=== PATIENT | female | born 1990 | race Caucasian/White ===

== ENCOUNTER 2022-09-11 16:36 | Emergency (ER) | payer SELFPAY ==
[2022-09-11 16:48] VITALS: BP 138/90; PULSE 115; RESP 16; TEMP 36.7; O2SAT 98
--- NOTE | 2022-09-11 17:03 | ED.MALEGU ---
HPI - Male Genitourinary General Chief complaint: Unspecified Stated complaint: Urinary Problem Time Seen by Provider: 09/11/22 17:00 Source: patient, RN notes reviewed and old records reviewed Mode of arrival: ambulatory Limitations: no limitations History of Present Illness HPI Narrative: 32 year old male who presents to [facility] with complaints of feeling a pressure sensation at times with urination and voiding a little at a time for the past week duration, patient denies any pain or burning with urination or any concern for STD exposure. 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 MD Complaint: other (pressure sensation with urination, voiding a little at a time) Onset (ago): week(s) (1) Related Data Allergies Allergy/AdvReac Type Severity Reaction Status Date / Time No Known Allergies Allergy Verified 09/11/22 16:55 Review of Systems Review of Systems: CONSTITUTIONAL: Denies fever, chills, or sweats. CARDIOVASCULAR: Denies chest pain, palpitations, or edema. RESPIRATORY: Denies cough or dyspnea. GASTROINTESTINAL: Denies abdominal pain, nausea, vomiting, or diarrhea. GENITOURINARY: Reports dysuria, voiding small amount and difficulty starting stream. Denies flank pain or hematuria. SKIN: Denies rash or itching. MUSCULOSKELETAL: Denies back pain or myalgia. Denies CVA tenderness NEUROLOGIC: Denies headache All systems reviewed & are unremarkable except as noted in HPI and below PMFSH Comments At time of signature, agree with nursing past medical, surgical, social and family history. There is no relevant family history pertinent to the presenting complaint Exam Narrative: GENERAL: Well-appearing, well-nourished, and in no acute distress. HEAD: Normocephalic, atraumatic. NECK: Supple.no lymphadenopathy CHEST: Clear to auscultation. No respiratory distress. HEART: Regular rate and rhythm. No murmur heard. Normal peripheral pulses. ABDOMEN: Soft, nontender, nondistended, normal active bowel sounds. No CVA tenderness, reports difficulty starting stream of urine, some discomfort with urination. EXTREMITIES: Normal range of motion. No edema. SKIN: Warm, dry, no rash. NEURO: No focal deficits. Alert and oriented x3. Course Course Emergency Course: Patient is aware of diagnosis, understands and agrees to treatment plan.? Anticipatory guidance given.? Patient agrees to follow-up as directed and is aware of reasons to seek care at the emergency department. Portions of this record may have been created with voice recognition software Level of Care: Express Care Visit Vital Signs Vital signs: Vital Signs Temperature 36.7 C 09/11/22 16:48 Pulse Rate 115 H 09/11/22 16:48 Respiratory Rate 16 09/11/22 16:48 Blood Pressure 138/90 09/11/22 16:48 Pulse Oximetry 98 09/11/22 16:48 Oxygen Delivery Room Air 09/11/22 16:48 Temperature 36.7 C 09/11/22 16:48 Pulse Rate 115 H 09/11/22 16:48 Respiratory Rate 16 09/11/22 16:48 Blood Pressure 138/90 09/11/22 16:48 Pulse Oximetry 98 09/11/22 16:48 Oxygen Delivery Room Air 09/11/22 16:48 MDM - Male Genitourinary Differential Diagnosis Differential diagnosis: Likely urinary tract infection, urethritis, prostatitis and other (BPH, ureteral stone) Medical Records Attestation: I reviewed the patient's medical records. Lab Data Attestation: I reviewed the patient's lab results. Lab results narrative: Glucose negative bilirubin 1+ ketone trace specific gravity greater than her equal to 1.030, blood negative pH 6.0 protein negative, urobilinogen 0.2 nitrate negative, leukocyte negative Critical Care Time Critical Care Time Critical Care Time: No Discharge Plan Discharge Clinical Impression: Dysuria Patient Disposition: Home, Self-Care Condition: Stable Instructions: Dysuria (ED) Additional Instructions: Increase fluids especially cranberry juice and water Avoid caff
== END 2022-09-11 17:27 | disposition home or self-care (01) ==
PROVIDERS: Emergency Provider Registered Nurse
DX: R30.0 Dysuria (principal)
CPT/HCPCS: 81003; 87086; 99213; G0463

== ENCOUNTER 2023-07-11 08:24 | Emergency (ER) | payer BC, SELFPAY ==
[2023-07-11 08:28] VITALS: BP 126/85; PULSE 101; RESP 20; TEMP 37.3; O2SAT 99
[2023-07-11 09:18] LABS: Influenza A QL RT-PCR Negative (Negative); Influenza B QL RT-PCR Negative (Negative); SARS-CoV-2 RNA PCR Positive (Negative)
--- NOTE | 2023-07-11 09:27 | ED.GENADULT ---
HPI - General Adult General Chief complaint: Unspecified Stated complaint: wants tested for covid Time Seen by Provider: 07/11/23 08:36 History of Present Illness HPI narrative: Patient is a 33-year-old male presenting with concerns for COVID. States that his partner tested positive several days ago. He woke up today with diffuse body aches especially in his legs and his back. No chest pain or shortness of breath. States that he wants to get tested. No further complaints or concerns. Related Data Home Medications Medication Instructions Recorded Confirmed No Home Medications 07/11/23 07/11/23 Allergies Allergy/AdvReac Type Severity Reaction Status Date / Time No Known Allergies Allergy Verified 07/11/23 08:34 Review of Systems Review of Systems: All systems reviewed & are unremarkable except as noted in HPI and below Exam Narrative: GENERAL: Well-appearing, in no acute distress HEAD: Normocephalic, atraumatic. EYES: PERRLA and EOMI. ENT: Grossly unremarkable NECK: Supple. CHEST: No respiratory distress. HEART: Regular rate and rhythm ABDOMEN: Nondistended EXTREMITIES: Normal range of motion. No edema. SKIN: Warm, dry, no rash. NEURO: Alert and oriented x3. PSYCH: Normal mood and affect. Course Vital Signs Vital signs: Vital Signs Temperature 99.1 F 07/11/23 08:28 Pulse Rate 101 H 07/11/23 08:28 Respiratory Rate 20 07/11/23 08:28 Blood Pressure 126/85 07/11/23 08:28 Pulse Oximetry 99 07/11/23 08:28 Oxygen Delivery Room Air 07/11/23 08:28 Temperature 99.1 F 07/11/23 08:28 Pulse Rate 101 H 07/11/23 08:28 Respiratory Rate 20 07/11/23 08:28 Blood Pressure 126/85 07/11/23 08:28 Pulse Oximetry 99 07/11/23 08:28 Oxygen Delivery Room Air 07/11/23 08:28 Medical Decision Making [facility] Narrative Medical decision making narrative: 33-year-old male presenting with diffuse body aches. Vitals are stable. He is positive for COVID-19. Discussed appropriate supportive care with Tylenol and ibuprofen and adequate hydration. Discussed appropriate quarantining. Advised PCP follow-up. Discharged in stable condition. Differential Diagnosis Differential Diagnosis: COVID, influenza, viral URI Vital Signs Vital Signs: Vital Signs Temperature 99.1 F 07/11/23 08:28 Pulse Rate 101 H 07/11/23 08:28 Respiratory Rate 20 07/11/23 08:28 Blood Pressure 126/85 07/11/23 08:28 Pulse Oximetry 99 07/11/23 08:28 Oxygen Delivery Room Air 07/11/23 08:28 Temperature 99.1 F 07/11/23 08:28 Pulse Rate 101 H 07/11/23 08:28 Respiratory Rate 20 07/11/23 08:28 Blood Pressure 126/85 07/11/23 08:28 Pulse Oximetry 99 07/11/23 08:28 Oxygen Delivery Room Air 07/11/23 08:28 Lab Data Lab results reviewed: Yes I reviewed the patient's lab results. Labs: Lab Results 07/11/23 Range/Units 08:31 Influenza A (RT-PCR) Negative (Negative) Influenza B (RT-PCR) Negative (Negative) SARS-CoV-2 RNA (RT-PCR) Positive A (Negative) Critical Care Time Critical Care Time Critical Care Time: No Discharge Plan Discharge Clinical Impression: COVID-19 Patient Disposition: Home, Self-Care Condition: Stable Instructions: Antibiotic Form, COVID-19 (Coronavirus Disease 2019) (ED) Additional Instructions: You are positive for COVID-19. Please quarantine for 5 days. Use Tylenol, ibuprofen for pain and fevers. Please make sure to stay hydrated. We recommend following up with PCP within 1 week. If your symptoms worsen, you develop chest pain, shortness of breath, numbness or weakness, vomiting, fevers >100.4F, or other concerning symptoms arise, please return to the ER. Prescriptions: No Action No Home Medications Follow-up/Referrals: PHYSICIAN,CORPORATE LIBRARIAN [Primary Care Provider] - Edy Evangelista MD [Physician] - Stand Alone Forms: Work/School Release IP
== END 2023-07-11 09:36 | disposition home or self-care (01) ==
PROVIDERS: Emergency Provider Emergency Medicine
DX: U07.1 COVID-19 (principal)
CPT/HCPCS: 87636; 99283

== ENCOUNTER 2023-08-15 11:02 | Emergency (ER) | payer SELFPAY ==
[2023-08-15 11:10] VITALS: BP 141/84; PULSE 92; RESP 18; TEMP 36.7; O2SAT 100
--- NOTE | 2023-08-15 11:34 | ED.NAVMDI ---
HPI - Nausea/Vomiting/Diarrhea General Chief complaint: Nausea/Vomiting/Diarrhea Stated complaint: light headed/nausea Source: patient and RN notes reviewed Mode of arrival: ambulatory Limitations: no limitations History of Present Illness HPI Narrative: Patient is a 33-year-old male who presents to the [facility] with complaints of nausea starting this morning. Patient states that he had 1 episode of emesis today. He is drink water since that time and has been able to keep it down. He denies abdominal pain or diarrhea. He reports some mild lightheadedness that occurs with the nausea. He denies chest pain or shortness of breath. Patient states that he has had several coworkers with the stomach flu. He denies recent fever. Related Data Allergies Allergy/AdvReac Type Severity Reaction Status Date / Time No Known Allergies Allergy Verified 07/11/23 08:34 Review of Systems Review of Systems: CONSTITUTIONAL: Denies fever, chills, or sweats. EYES: Denies visual changes, redness, or discharge. ENT: Denies otalgia and sore throat CARDIOVASCULAR: Denies chest pain, palpitations, or edema. RESPIRATORY: Denies cough or dyspnea. GASTROINTESTINAL: Denies abdominal pain or diarrhea. Reports nausea and vomiting. GENITOURINARY: Denies dysuria or hematuria. SKIN: Denies rash or itching. MUSCULOSKELETAL: Denies back pain, joint pain, or myalgia. NEUROLOGIC: Denies headache, numbness, or weakness. Pertinent positives per HPI. PMFSH Comments At the time of my signature, I reviewed and agree with the nursing past medical, surgical, social, and family history. There is no relevant family history pertinent to the patient complaint. Exam Narrative: GENERAL: This is a well-nourished, well-developed patient, in no apparent distress. HEAD: normocephalic, atraumatic. EYES: Sclera clear/white. Vision is grossly intact. EARS: External ears normal, auditory canals clear and without drainage, TMs normal without perforation. Hearing grossly intact. NOSE: External nose normal with no obvious nasal discharge, nares without redness, no rhinorrhea. THROAT: Mucous membranes moist, posterior pharynx clear. NECK: Neck supple, non-tender without lymphadenopathy, masses or thyromegaly. CARDIOVASCULAR: Regular rate and rhythm without murmurs, gallops, or rubs. RESPIRATORY: Clear to auscultation. Breath sounds equal bilaterally. No wheezes, rales, or rhonchi. GASTROINTESTINAL: Abdomen soft, non-tender, nondistended. Bowel sounds are active. No hepato-splenomegaly, or palpable masses. No guarding. SKIN: warm, intact with no suspicious lesions or rash, good texture and turgor. NEURO: awake, alert, and oriented to person, place and time. There were no obvious focal neurologic abnormalities. Course Course Level of Care: Express Care Visit Vital Signs Vital signs: Vital Signs Temperature 98.1 F 08/15/23 11:10 Pulse Rate 92 08/15/23 11:10 Respiratory Rate 18 08/15/23 11:10 Blood Pressure 141/84 H 08/15/23 11:10 Pulse Oximetry 100 08/15/23 11:10 Oxygen Delivery Room Air 08/15/23 11:10 Temperature 98.1 F 08/15/23 11:10 Pulse Rate 92 08/15/23 11:10 Respiratory Rate 18 08/15/23 11:10 Blood Pressure 141/84 H 08/15/23 11:10 Pulse Oximetry 100 08/15/23 11:10 Oxygen Delivery Room Air 08/15/23 11:10 Reviewed MDM - Nausea/Vomiting/Diarrhea MDM Narrative Medical decision making narrative: You've been diagnosed with a viral illness that would not require antibiotics at this time. Take the Zofran ODT at home as directed for nausea and get plenty of fluids. You may take Imodium for diarrhea and the Bentyl for abdominal cramping. If you would like to eat food, you should follow the BRAT diet (bananas, rice, applesauce, and toast, or things of the like). If you develop any new or worsening symptoms, you should go to the emergency dept without hesitation. Follow up with your clinic md associate in 2-5 days. Differenti
== END 2023-08-15 11:46 | disposition home or self-care (01) ==
PROVIDERS: Emergency Provider Nurse Practitioner
DX: A08.4 Viral intestinal infection, unspecified (principal)
CPT/HCPCS: 99213; G0463

== ENCOUNTER 2023-10-08 11:17 | Emergency (ER) | payer BC, SELFPAY ==
[2023-10-08 11:24] VITALS: BP 126/84; PULSE 94; RESP 16; TEMP 37.4; O2SAT 100
--- NOTE | 2023-10-08 11:43 | ED.URI ---
HPI - URI/Sore Throat General Chief Complaint: Upper Respiratory Infection Stated Complaint: Sore Throat/Cough History of Present Illness HPI Narrative: Patient presents with upper respiratory symptoms. Patient denies any sore throat no cough no chest pain. Patient states he worked at [employer] any missed work today due to his symptoms and would like a work note any wants to return tomorrow. Related Data Home Medications Medication Instructions Recorded Confirmed No Home Medications 10/08/23 10/08/23 Allergies Allergy/AdvReac Type Severity Reaction Status Date / Time No Known Allergies Allergy Verified 10/08/23 11:33 Review of Systems Review of Systems: CONSTITUTIONAL: Denies chills, or sweats. Reports fever and generalized body aches EYES: Denies visual changes, redness, or discharge. ENT: Denies otalgia. Reports nasal congestion runny nose and sore throat CARDIOVASCULAR: Denies chest pain, palpitations, or edema. RESPIRATORY: Denies dyspnea. Reports occasional cough GASTROINTESTINAL: Denies abdominal pain, nausea, vomiting, or diarrhea. GENITOURINARY: Denies dysuria or hematuria. SKIN: Denies rash or itching. MUSCULOSKELETAL: Denies back pain, joint pain, or myalgia. Reports generalized body aches NEUROLOGIC: Denies headache, numbness, or weakness. PSYCHIATRIC: Denies anxiety or depression. PMFSH Comments At time of signature, agree with nursing past medical, surgical, social and family history. There is no relevant family history pertinent to the presenting complaint Exam Narrative: The patient is a well-developed, well-nourished in no acute distress. SKIN: Skin is warm and dry without erythema, swelling or exudate. There is good turgor. No tenting. HEAD: Atraumatic. Normocephalic. No temporal or scalp tenderness. EYES: Moist and bright. Sclera and conjunctivae normal. No discharge. PERRLA. Extraocular motions intact. Gross visual acuity intact. EARS: Pinna is normal shape and contour. Clear external auditory canals. TM pearly terrell with good cone of light, no erythema or suppuration. Bilateral cerumen noted no gross hearing deficit. NOSE: pink, moist mucosa with good air movement. Clear rhinorrhea without nasal flaring. Septum midline. Mouth: moist mucous membranes. THROAT; mild erythema noted to posterior oropharynx with moderate postnasal drainage. Without exudate or ulceration.. Uvula midline. Normal movement of soft palate. NECK: Supple and nontender with full range of motion without discomfort. No meningeal signs. LUNGS: Equal and bilateral breath sounds without wheezes, rales or rhonchi. CHEST: The chest wall is without retractions or use of accessory muscles. HEART: Has a regular rate and rhythm without murmur, gallops, click or rub. ABDOMEN: Soft, nontender with positive active bowel sounds. No rebound tenderness. EXTREMITIES: Without cyanosis, clubbing or edema. Equal 2+ distal pulses and 2 second capillary refill noted. NEUROLOGIC: alert, active, . The patient moves all extremities with normal muscle strength. Normal muscle tone is noted. Normal coordination is noted. NO focal neurological findings noted. Course Course Level of Care: Express Care Visit Vital Signs Vital signs: Vital Signs Temperature 37.4 C 10/08/23 11:24 Pulse Rate 94 10/08/23 11:24 Respiratory Rate 16 10/08/23 11:24 Blood Pressure 126/84 10/08/23 11:24 Pulse Oximetry 100 10/08/23 11:24 Oxygen Delivery Room Air 10/08/23 11:24 Temperature 37.4 C 10/08/23 11:24 Pulse Rate 94 10/08/23 11:24 Respiratory Rate 16 10/08/23 11:24 Blood Pressure 126/84 10/08/23 11:24 Pulse Oximetry 100 10/08/23 11:24 Oxygen Delivery Room Air 10/08/23 11:24 Discharge Plan Discharge Clinical Impression: Upper respiratory infection Patient Disposition: Home, Self-Care Condition: Stable Instructions: Upper Respiratory Infection (DC) Additional Instructions: congestion - flona
== END 2023-10-08 11:47 | disposition home or self-care (01) ==
PROVIDERS: Emergency Provider Nurse Practitioner Family
DX: J06.9 Acute upper respiratory infection, unspecified (principal)
CPT/HCPCS: 99211; G0463

== ENCOUNTER 2025-03-03 17:55 | Emergency (ER) | payer OTHER, SELFPAY ==
--- NOTE | ~2025-03-03 | XR_ITS ---
EXAM: XR hand RT min 3V DATE: 03/03/2025 18:51 HISTORY: dog bite, pain and swelling lateral palm area . COMPARISON: None available. FINDINGS: Normal mineralization. No fracture or dislocation. No lytic or blastic lesion. Joint space s are maintained. No erosion or periosteal change. Soft tissues within normal limits. IMPRESSION: No acute osseous finding in the right hand. Reviewed, dictated and finalized at location K.
--- OUTSIDE RECORDS SUMMARY | 2025-03-03 17:57 | XMS_ITS | Clinical Summary ---
Author Organization [facility] Address [address] [place] [address] Phone Care Team Providers Care Special Education Math Teacher Name Role Phone Provider, None Primary Care Provider Unavailabl e Allergies No known active allergies Medications HYDROcodone-acet aminophen (NORCO) 10-325 MG TabletIndication s:Malignant neoplasm of right testis, unspecified whether descended or undescended (HCC) Take 1 Tab by mouth every 6 hours as needed for Pain. 30 Tab 0 11/02/2016 Active HYDROcodone-acet aminophen (NORCO) 5-325 MG Tablet Take 1-2 Tabs by mouth every 4 hours as needed for Pain. 20 Tab 0 11/21/2016 Active naproxen (NAPROSYN) 500 MG Tablet Take 1 Tablet by mouth 2 times daily as needed for Mild or more severe pain. 20 Tablet 07/25/2022 Active Active Problems Problem Noted Date Diagnosed Date Testicular mass 10/18/2016 Abdominal pain 10/18/2016 Tobacco abuse 10/18/2016 Family History Medical History Relation Name Comments Breast Cancer Mother Relation Name Status Comments Mother Social History Tobacco Use Types Packs/Day Years Used Date Smoking Tobacco: Every Day Cigarettes Tobacco Cessation:Counseling Given: Yes Comments:sure Alcohol Use Standard Drinks/Week Comments Yes 0 (1 standard drink = 0.6 oz pur e alcohol) socially Sexually Active Control Partners Comments Yes Female Sex and Gender Information Value Date Recorded Sex Assigned at Not on file Legal Sex Male 11:07 PM CDT Gender Identity Not on file Sexual Orientation Not on file Last Filed Vital Signs Vital Sign Reading Time Taken Comments Blood Pressure 120/77 07/25/2022 4:57 PM CDT Pulse 83 07/25/2022 4:57 PM CDT Temperature 36.9 C (98.4 F) 07/25/2022 4:57 PM CDT Respiratory Rate 16 07/25/2022 6:12 PM CDT Oxygen Saturation 98% 07/25/2022 4:57 PM CDT Inhaled Oxygen Concentration - - Weight 70.3 kg (155 lb) 07/25/2022 4:57 PM CDT Height 180.3 cm (5' 11) 07/25/2022 4:57 PM CDT Body Mass Index 21.62 07/25/2022 4:57 PM CDT Plan of Treatment Health Maintenance Due Date Last Done Comments Hepatitis C Virus (HCV) Screening 1990 TdaP Immunization 1990 Hepatitis B Immunization (1 of 3 - 19+ 3-dose series) 2009 Influenza Immunization (#1) 2024 SARS-COV-2 Immunization (2023- season) 2024 Respiratory Syncytial Virus (RSV) Immunization (Adult) (1 - 1-dose 75+ series) 2065 Meningococcal Immunization (ACWY) Aged Out No longer eligible based on patient's age to complete this topic Pneumococcal Immunization Combined Aged Out No longer eligible based on patient's age to complete this topic Rotavirus Immunization Aged Out No lo nger eligible based on patient's age to complete this topic Advance Directives * Full Code (Latest Code Status on File) Date Activated Date Inactivated Comments 10/17/2016 4:53 PM 10/18/2016 1:28 PM CPR-Full Chang atment: FULL ARREST: Attempt Resuscitation/CPR wit intubation and mechanical ventilation. PRE-ARREST: Use entire range of life support measures to stabilize the patient. Care Teams Special Education Math Teacher Relationship Specialty Start Date End Date Provider, None [place] PCP - General 09/01/15
--- OUTSIDE RECORDS SUMMARY | 2025-03-03 17:57 | XMS_ITS | Referral Summary ---
Author Organization [facility] HealthCare Care Team Providers Care Credit Union Examiner Name Role Phone No, Physician Primary Care Provider [phone] Allergies No known active allergies Medications acetaminophen-c odeine (TYLENOL with CODEINE #3) 300-30 mg per tabletIndicatio ns:Pain Take 1 tablet by mouth every 6 (six) hours as needed for pain. 15 tablet 8 Active Additional Information Patient not taking.Reported on 02/07/2022 HYDROcodone-rosa elena taminophen (NORCO) 10-325 mg per tabletIndicatio ns:Pain Take by mouth. 7 Active prazosin (MINIPRESS) 1 mg capsule TAKE ONE CAPSULE BY MOUTH EVERY NIGHT AT BEDTIME 8 Active naproxen (NAPROSYN) 500 mg tabletIndicatio ns:Pain Take 1 tablet (500 mg total) by mouth 2 (two) times a day with meals. 20 tablet 8 Active Additional Information Patient not taking.Reported on 02/07/2022 triamcinolone (KENALOG) 0.1 % cream Apply to affected area 1-2 times daily as needed. Avoid face and groin. 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 Gender Identity Not on file Sexual Orientation Not on file Last Filed Vital Signs Vital Sign Reading Time Taken Comments Blood Pressure 114/82 02/07/2022 4:38 PM CDT Pulse 86 02/07/2022 4:38 PM CDT Temperature 36.8 C (98.3 F) 02/07/2022 4:38 PM CDT Respiratory Rate 20 02/07/2022 4:38 PM CDT Oxygen Saturation 96% 02/07/2022 4:38 PM CDT Inhaled Oxygen Concentration - - Weight 72 kg (158 lb 12.8 oz) 02/07/2022 4:38 PM CDT Height 180.3 cm (5' 11) 02/07/2022 4:38 PM CDT Body Mass Index 22.15 02/07/2022 4:38 PM CDT Plan of Treatment Not on file Insurance [employer] OPEN ACCESS [employer] OPEN ACCESS Care Teams Credit Union Examiner Relationship Specialty Start Date End Date No, Physician PCP - General 02/16/17
--- OUTSIDE RECORDS SUMMARY | 2025-03-03 17:57 | XMS_ITS | Clinical Summary ---
Author Organization 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
[2025-03-03 18:18] VITALS: BP 120/81; PULSE 74; RESP 20; TEMP 37; O2SAT 100
--- NOTE | 2025-03-03 19:36 | ED_ITS ---
HPI - Animal Bite General Chief Complaint: Animal Bite Stated Complaint: Dog Bite/Right Hand Time Seen by Provider: 03/03/25 18:30 Source: patient and RN notes reviewed Mode of arrival: ambulatory Limitations: no limitations History of Present Illness HPI narrative: 34-year-old male presents [facility] complaining dog bite to right hand. 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 Patient says he has a small puncture to his right palm. Patient was told that the dogs rabies were up-to-date. Patient states his tetanus is up-to-date. Injury occurred today approximately 5 hours prior to arrival. Patient denies any numbness or tingling, or any other symptoms to the injury. Patient immediately washed the wound with soap and wa ter. Related Data Allergies Allergy/AdvReac Type Severity Reaction Status Date / Time No Known Allergies Allergy Verified 10/08/23 11:33 Review of Systems Review of Systems: CONSTITUTIONAL: Denies fever, chills, or sweats. EYES: Denies visual changes, redness, or discharge. ENT: Denies rhinorrhea, congestion, sore throat, or otalgia. CARDIOVASCULAR: Denies chest pain, palpitations, or edema. RESPIRATORY: Denies cough or dyspnea. GASTROINTESTINAL: Denies abdominal pain, nausea, vomiting, or diarrhea. GENITOURINARY: Denies dysuria or hematuria. SKIN: Denies rash or itching. Positive for wound. MUSCULOSKELETAL: Denies back pain, joint pain, or myalgia. NEUROLOGIC: Denies headache, numbness, or weakness. PSYCHIATRIC: Denies anxiety or depression. All other systems reviewed are negative, except as documented in HPI. PMFSH Comments At the time of my signature, I reviewed and agree with the nursing past medical, surgical, social, and family history. There is no relevant family history pertinent to the patient complaint. Exam Narrative: GENERAL: This is a well-nourished, well-developed adult, in no apparent distress. They are non ill-appearing, nontoxic appearing. HEAD: normocephalic, atraumatic. EYES: Sclera clear/white. Conjunctiva normal. Vision is grossly intact. Extraocular movements intact EARS: External ears normal, Hearing grossly intact. NOSE: External nose normal THROAT: Mucous membranes moist NECK: Neck supple CARDIOVASCULAR: Regular rate and rhythm RESPIRATORY: Respiratory rate normal, respiratory effort nonlabored, no respiratory distress SKIN: Right hand: 2 small puncture wounds measuring less than 0.5 cm in diameter to the patient's palm near the right thumb. There is mild swelling to the area. There is no tenderness to palpation, erythema, or exudate. No area of fluctuance or induration. NEURO: awake, alert, and oriented to person, place and time. There were no obvious focal neurologic abnormalities. EXTREMITIES: No joint tenderness, effusion, or edema noted. Right hand: No obvious deformity, redness, bruising. Dog bite present, see skin section. Normal range of motion, Patient is able to make a fist, stop sign, thumbs-up sign, okay sign. Neurovascular status intact distal to the injury. Patient is able to wiggle his fingers. Normal pronation, flexion, extension, and supination of wrist. Course Course Emergency Course: Portions of this record may have been created with voice recognition software Level of Care: Express Care Visit Vital Signs Vital signs: Vital Signs Temperature 98.6 F 03/03/25 18:18 Pulse Rate 74 03/03/25 18:18 Respiratory Rate 20 03/03/25 18:18 Blood Pressure 120/81 03/03/25 18:18 Pulse Oximetry 100 03/03/25 18:18 Oxygen Delivery Room Air 03/03/25 18:18 Temperature 98.6 F 03/03/25 18:18 Pulse Rate 74 03/03/25 18:18 Respiratory Rate 20 03/03/25 18:18 Blood Pressure 120/81 03/03/25 18:18 Pulse Oximetry 100 03/03/25 18:18 Oxygen Delivery Room Air 03/03/25 18:18 Reviewed MDM - Animal Bite MDM Narrative Medical decision making narrative: X-ray right hand is negative for any evidence of fracture or acute findings. Patient's tetanus is up-to-date. Patient states he was told the dogs rabies were up-to-date. No indication for rabies prophylaxis at this time. Will treat empirically for infection prevention with Augmentin. Wound was cleaned and non adherent dressing was placed by nursing staff. Differential Diagnosis Differential diagnosis: Likely dog bite and other (Cellulitis, hand fracture) Imaging Data Radiologist's impression: ITS Impressions Hand X-Ray 03/03/25 19:03 IMPRESSION: No acute osseous finding in the right hand. Critical Care Time Critical Care Time Critical Care Time: No Discharge Plan Discharge Clinical Impression: Dog bite Qualifiers: Encounter type: initial encounter Qualified Code(s): W54.0XXA - Bitten by dog, initial encounter Patient Disposition: Home Condition: Stable Instructions: Antibiotic Form, Animal Bite (ED) Additional Instructions: X-ray was negative for any fracture or acute findings. Take the antibiotics at directed. Wash the wound daily with mild soap and water. Keep the wound Covered and dry until it is healed completely. Follow-up with PCP in 3-5 days. If you developed worsening redness, swelling, pain, or any other concerns please go to the ER immediately. Patient Language: Romansh Prescriptions: New amoxicillin-pot clavulanate 875-125 mg tablet 1 tablet PO Q12H 7 Days Qty: 14 0RF Follow-up/Referrals: PHYSICIAN,DEPILATORY PAINTER [Primary Care Provider] - Stand Alone Forms: Work/School Release IP Time of Disposition: 19:08
== END 2025-03-03 19:11 | disposition home or self-care (01) ==
DX: S61.431A Puncture wound without foreign body of right hand, initial encounter (principal); W54.0XXA Bitten by dog, initial encounter
CPT/HCPCS: 73130; 99213; G0463